=== PATIENT | female | born 1960 | race Caucasian/White ===

== ENCOUNTER → 2017-07-29 | Outpatient (CLI) | payer OTHER ==
[2017-07-29 10:40] LABS: HEMOGLOBIN 13.4 g/dL (12.2-16.2); LYMPH # 1.4 K/mm3 (0.7-4.5)
[2017-07-29 11:53] LABS: BUN 15 mg/dL (7-18); FREE THYROXIN INDEX 8.2 ug/dl (5.93-13.13)
[2017-07-29 12:03] LABS: GFR (ESTIMATED) 74 ML/MIN (59-)
[2017-08-01 18:36] LABS: Antinuclear Antibodies, IFA Positive (.)
== END ==
LOC: LAB 10:25
PROVIDERS: Internal Medicine Adolescent Medicine
DX: M15.0 Primary generalized (osteo)arthritis (principal); E78.5 Hyperlipidemia, unspecified; E03.9 Hypothyroidism, unspecified